=== PATIENT | female | born 1995 | race Caucasian/White ===

== ENCOUNTER 2017-11-28 11:26 | Emergency (ER) | payer BC, SELFPAY ==
[2017-11-28 11:27] VITALS: BP 117/78; PULSE 87; RESP 18; TEMP 36.6; O2SAT 94; BMI 25.0
--- NOTE | 2017-11-28 13:03 | RAD_ITS ---
STUDY: X-RAY - SOFT TISSUE NECK REASON FOR EXAM: Female, 22 years old. Pain following ingestion of a pill. TECHNIQUE: AP and lateral view(s) of the neck were obtained. COMPARISON: None. FINDINGS: Normal visualized nasopharynx, oropharynx, hypopharynx. Normal epiglottis. Normal visualized subglottic tracheal air column. Normal prevertebral soft tissue structures. Normal visualized osseous structures. The soft tissue structures are unremarkable. RAD/Neck for Soft Tissue IMPRESSION: Normal x-ray soft tissue neck. Electronically Signed: Josue Forbes MD at 13:15 EST Tel [phone], Service support ,
--- NOTE | 2017-11-28 13:21 | ED.DCSUM_ITS ---
- ER Visit Summary Date of Service: 11/28/17 Chief Complaint: Concerned her Zoloft pill is stuck History of Present Illness: The patient is a 22 F who presents because she believes her evening dose of Zoloft is stuck. She complains of foreign body sensation. She points above the sternal notch. She ate a couple of crackers today. She has not had any change in voice, drooling or difficulty breathing. She denies any fever or chills. She denies any URI symptoms. She has no other complaints Physical Examination: Patient's vitals are normal. She has a depressed affect. Voice is monotone and there is a poverty of speech. Head is atraumatic normocephalic. Pupils are equal round reactive. Extraocular muscles are intact. TMs are pearly white with landmarks noted. Nares patent with no drainage. Posterior pharynx without erythema or exudate. Uvula is midline. There is no dysphonia or dysphasia. Trachea is midline. There is no stridor with auscultation of the neck. Heart is regular without murmur, gallop or rub. S1 and S2 are normal. Lungs are clear to auscultation with good movement of air bilaterally. Test Results: Two-view x-ray of the neck was obtained and reveals no evidence of retropharyngeal soft tissue swelling, epiglottitis, parapharyngeal swelling or any abnormality. There is no evidence of lingular tonsillitis. Emergency Department Course and Treatment: Was treated with Viscous Xylocaine. She was reassessed at 1225. She states there is no improvement. Had any drooling. Because she reports no improvement soft tissue x-ray the neck were obtained. Treatment Plan: Symptomatic treatment Disposition: Discharged to home Impression: Foreign body sensation neck This note was generated with [employer] dictation software. It may contain incorrect words, spelling, and punctuation that were not noted in review of the chart prior to signing ED Disposition - Plan for ED Patient: Disposition: Home or Assisted Living Chief Complaint: Foreign Body Instructions: ED Foreign Body Swallowed Adult Referrals: Care Physician,No Primary [Primary Care Provider] - Gelacio Ivey MD [STAFF PHYSICIAN] - 1-2 Days if not improving Additional Instructions: You were referred to Dr. Sami Ivey since she did not have a physician in the area.
[2017-11-28 13:40] VITALS: BP 122/81; PULSE 76; RESP 16; O2SAT 100
== END 2017-11-28 13:41 | disposition home or self-care (01) ==
PROVIDERS: Emergency Provider Emergency Medicine
DX: R09.89 Other specified symptoms and signs involving the circulatory and respiratory systems (principal); F32.9 Major depressive disorder, single episode, unspecified
CPT/HCPCS: 70360; 99283